=== PATIENT | male | born 1985 | race Caucasian/White ===

== ENCOUNTER 2021-03-08 18:32 | Emergency (ER) | payer OTHER ==
[~2021-03-08] VITALS: Ht 185.4 cm; Wt 102.3 kg
[2021-03-08 19:44] VITALS: BP 127/83
== END 2021-03-08 19:44 | disposition home or self-care (01) ==
LOC: ED 18:32
DX: S61.011A Laceration without foreign body of right thumb without damage to nail, initial encounter (principal); Z87.891 Personal history of nicotine dependence; Z23 Encounter for immunization; W26.8XXA Contact with other sharp object(s), not elsewhere classified, initial encounter; Y99.0 Civilian activity done for income or pay
CPT/HCPCS: 90715

== ENCOUNTER 2021-04-02 15:03 | Emergency (ER) | payer OTHER ==
[2021-04-02 15:11] VITALS: BP 143/83
== END 2021-04-02 16:41 | disposition home or self-care (01) ==
LOC: ED 15:03
DX: S62.396A Other fracture of fifth metacarpal bone, right hand, initial encounter for closed fracture (principal); S61.011A Laceration without foreign body of right thumb without damage to nail, initial encounter; Z87.81 Personal history of (healed) traumatic fracture; W22.01XA Walked into wall, initial encounter